=== PATIENT | female | born 1940 | race Caucasian/White ===

== ENCOUNTER 2019-11-15 08:57 | Outpatient (CLI) | payer MEDICARE, OTHER ==
[~2019-11-15 08:57] MED LIST: ASPI-496 PO; AZIT250T89 PO; LEVO100T PO; MULT-516 PO
== END 2019-11-15 23:59 | disposition home or self-care (01) ==
LOC: ROC 08:57
PROVIDERS: ATTEND Radiology Radiation Oncology
DX: C34.32 Malignant neoplasm of lower lobe, left bronchus or lung (principal)
CPT/HCPCS: 99214; G0463

== ENCOUNTER 2020-03-27 07:44 | Outpatient (CLI) | payer MEDICARE | END 2020-03-27 23:59 | disposition home or self-care (01) | LOC: ROC 07:44 | PROVIDERS: ATTEND Radiology Radiation Oncology | DX: C34.32 Malignant neoplasm of lower lobe, left bronchus or lung (principal) | CPT/HCPCS: 99213; G0463 ==

== ENCOUNTER 2020-10-01 09:01 | Outpatient (CLI) | payer MEDICARE | END 2020-10-01 23:59 | disposition home or self-care (01) | LOC: ROC 09:01 | PROVIDERS: ATTEND Radiology Radiation Oncology | DX: Z08 Encounter for follow-up examination after completed treatment for malignant neoplasm (principal); Z85.118 Personal history of other malignant neoplasm of bronchus and lung | CPT/HCPCS: 99213; G0463 ==

== ENCOUNTER 2020-12-31 09:28 | Outpatient (CLI) | payer MEDICARE | END 2020-12-31 23:59 | disposition home or self-care (01) | LOC: ROC 09:28 | PROVIDERS: ATTEND Radiology Radiation Oncology | DX: Z08 Encounter for follow-up examination after completed treatment for malignant neoplasm (principal); Z85.118 Personal history of other malignant neoplasm of bronchus and lung | CPT/HCPCS: G0463 ==

== ENCOUNTER → 2021-06-02 | Outpatient (CLI) | payer MEDICARE | END | disposition home or self-care (01) | LOC: ROC 08:06 | PROVIDERS: ATTEND Radiology Radiation Oncology | DX: Z08 Encounter for follow-up examination after completed treatment for malignant neoplasm (principal); Z85.118 Personal history of other malignant neoplasm of bronchus and lung | CPT/HCPCS: G0463 ==